=== PATIENT | male | born 1960 | race Hispanic/Latino ===

== ENCOUNTER → 2018-08-07 | Outpatient (CLI) | payer BC | END | disposition home or self-care (01) | LOC: SHCH 15:03 | PROVIDERS: ATTEND Internal Medicine Cardiovascular Disease | DX: I11.9 Hypertensive heart disease without heart failure (principal); I65.23 Occlusion and stenosis of bilateral carotid arteries; I25.10 Atherosclerotic heart disease of native coronary artery without angina pectoris | CPT/HCPCS: 93306; 93880 ==

== ENCOUNTER → 2018-08-08 | Outpatient (CLI) | payer BC ==
[~2018-08-08] MED LIST: REGADENOSON 0.4 MG/5 ML PF SYG IVP SCH
== END | disposition home or self-care (01) ==
LOC: SHCH 08:28
PROVIDERS: ATTEND Internal Medicine Cardiovascular Disease
DX: I25.9 Chronic ischemic heart disease, unspecified (principal); I10 Essential (primary) hypertension
CPT/HCPCS: 78452; 93017; 96374; A9500 ×2; J2785

== ENCOUNTER → 2019-09-11 | Outpatient (CLI) | payer OTHER | END | disposition home or self-care (01) | LOC: SHCH 07:33 | PROVIDERS: ATTEND Internal Medicine Cardiovascular Disease | DX: I10 Essential (primary) hypertension (principal); I25.10 Atherosclerotic heart disease of native coronary artery without angina pectoris | CPT/HCPCS: 78452; 93017; 96374; A9500 ×2; J2785 ==

== ENCOUNTER → 2021-01-25 | Outpatient (CLI) | payer OTHER | END | disposition home or self-care (01) | LOC: SHCH 09:05 | PROVIDERS: ATTEND Internal Medicine Cardiovascular Disease | DX: I25.10 Atherosclerotic heart disease of native coronary artery without angina pectoris (principal); I51.7 Cardiomegaly; I10 Essential (primary) hypertension; E11.9 Type 2 diabetes mellitus without complications | CPT/HCPCS: 93306; 93356; 93880 ==

== ENCOUNTER → 2023-05-25 | Outpatient (CLI) | payer OTHER | END | disposition home or self-care (01) | LOC: SHCH 14:04 | PROVIDERS: ATTEND Internal Medicine Cardiovascular Disease | DX: I65.23 Occlusion and stenosis of bilateral carotid arteries (principal) | CPT/HCPCS: 93880 ==

== ENCOUNTER 2025-04-02 05:47 | Day surgery (SDC) | payer OTHER ==
[2025-03-31 11:54] VITALS: BP 117/71; PULSE 83; RESP 18; TEMP 97.3
[2025-03-31 11:56] LABS: IMMATURE GRANULOCYTE ABSOLUTE 0.06 K/uL (0-1); NUCLEATED RED BLOOD CELLS 0.0 % (0.0-0.19); PLATELET COUNT (AUTO) 191 K/uL (130-400); RED BLOOD CELL COUNT(AUTO) 5.02 MIL/uL (4.50-6.20); RED CELL DISTRIBUTION WIDTH 12.3 % (11.0-15.5); WHITE BLOOD COUNT (AUTO) 8.6 K/uL (4.8-10.8)
[2025-03-31 12:08] LABS: INR 1.02 (0.85-1.15)
[2025-03-31 12:13] LABS: CREATININE 0.7 mg/dL (0.5-1.3); GLOMERULAR FILTR. RATE CALC 102.0 mL/min (>90); GLUCOSE,RANDOM 116.0 mg/dL (70-105); SODIUM SERUM 137.0 mmol/L (136-145); UREA NITROGEN, BLOOD 15.0 mg/dL (7-18)
[2025-03-31 12:22] LABS: APPEARANCE,URINE CLEAR (CLEAR); GLUCOSE, URINE (UA) >=1000 mg/dL (NEGATIVE); LEUKOCYTE ESTERASE ,URINE NEGATIVE Leu/uL (NEGATIVE); NITRATE,URINE NEGATIVE (NEGATIVE); OCCULT BLOOD,URINE NEGATIVE (NEGATIVE)
[2025-03-31 12:28] LABS: ADD UA MICROSCOPIC YES
--- NOTE | 2025-03-31 13:03 | EKG ---
[facility] Test Date: 2025-03-31 Test Time: 11:49:33 Pat Name: FRANCESCA RHODES Department: [facility] Patient ID: [facility] [id number] Room: [facility] Gender: M [employer] Operator: [id number] : 1960 Requested By: Ros KULKARNI Order Number: [id number] Reading MD: Oscar López Measurements Intervals [place] Rate: 79 P: 38 AR: 220 QRS: -54 QRSD: 98 T: 68 QT: 401 QTc: 459 Interpretive Statements Sinus rhythm Prolonged AR interval Inferolateral infarct, old No previous ECG available for comparison Electronically Signed On 04-02-2025 08:47:54 RECONCILIATION MANAGER by Oscar López Please click the below link to view image of tracing.
--- NOTE | 2025-04-01 00:41 | HMCIMG ---
EXAM: CR CHEST, 1 VIEW CLINICAL HISTORY: Preoperative COMPARISON: None provided TECHNIQUE: Single frontal radiograph of the chest was obtained. FINDINGS: Lines/Devices: None. Lungs: Blunted right costophrenic angle, mostly representing pleural thickening. No consolidation or ground-glass opacities are observed. There is no pleural effusion. There is no pneumothorax. Mediastinum and cardiovascular structures: Unfolding of the aorta is noted. The cardiac silhouette is not enlarged. The central airway and mediastinal contours are unremarkable. Bones and soft tissues: Bilateral osteoarthritic changes are seen at the glenohumeral joints as well as the acromioclavicular joints, more evident at the right glenohumeral joint with joint space narrowing and marginal osteophytes. IMPRESSION: 1. No acute cardiopulmonary disease. 2. Bilateral osteoarthritic changes at the glenohumeral joints as well as the acromioclavicular joints, more evident at the right glenohumeral joint. 3. Blunted right costophrenic angle, mostly representing pleural thickening. /[place]
[~2025-04-02] VITALS: Ht 170.2 cm; Wt 89.1 kg
[2025-04-02] VITALS (9 sets, daily range): BP systolic 101–126; BP diastolic 70–80; PULSE 75–86; RESP 11–16; TEMP 97–97.3
[2025-04-02] MEDS: 0.9%NACL 1000ML 1,000 ML IV SCH (06:28)
[2025-04-02] MEDS ORDERED: LIDOCAINE HCL 400MG/20ML VIAL ONE (07:12)
[2025-04-02] MEDS ORDERED: IOHEXOL 350 MG/ML 100ML INFUS..BTL IV ONE (07:12)
[2025-04-02] MEDS ORDERED: HEParin-NS 1,000 UNIT/500 ML 1,000 ML IV ONE (07:13)
[2025-04-02] MEDS ORDERED: NITROGLYCERIN 50MG VIAL ONE (07:13)
[2025-04-02] MEDS ORDERED: MIDAZOLAM HCL 1 MG/ML 2ML VIAL ONE ×2 (07:20→07:50)
[2025-04-02] MEDS ORDERED: SODIUM BICARB 50MEQ 50ML VIAL 50 ML ONE (07:26)
[2025-04-02] MEDS ORDERED: IOHEXOL-350 50ML VIAL IV ONE ×2 (07:53→08:18)
[2025-04-02] MEDS ORDERED: DEXTROSE 50%-WATER 50 ML DISP.SYRIN IV PRN (09:00)
[2025-04-02] MEDS ORDERED: 0.9%NACL 1000ML 1,000 ML IV SCH (09:00)
[2025-04-02] MEDS ORDERED: GLUCAGON 1MG KIT 1 MG ML IM PRN (09:00)
--- NOTE | 2025-04-02 09:21 | CCATH ---
PROCEDURES: * Left heart catheterization. * Left ventriculogram. * Selective right and left coronary arteriogram. * Conscious sedation 60 minutes. INDICATIONS: * Known history of severe coronary artery disease. * Status post remote inferior posterior wall SD with stent placement in 2003. * Status post angioplasty and stenting of the LAD in 2017. * Recurrent angina. * Mild LV dysfunction by echocardiography. * Markedly abnormal Lexiscan Cardiolite, considered a high-risk scan. COMPLICATIONS: None. TOTAL CONTRAST: 85 mL. APPROACH: Right radial approach. DESCRIPTION OF PROCEDURE: The patient was taken to the cardiac catheterization lab after appropriate operative consent was signed. He was prepped and draped in the usual fashion. After conscious sedation was administered, the right radial artery region was infiltrated with 2% Xylocaine without epinephrine. A 6-Togolese radial Slender sheath was advanced in a retrograde fashion with modified Seldinger technique. A TIG-4 catheter was advanced over an indwelling wire. This was engaged in the right coronary artery. The right coronary artery was imaged in multiplane. The right coronary artery was a large vessel that had areas of ectasia. There was diffuse moderate disease in the right coronary artery with focal segmental stenotic lesions of 40% in the proximal segment, 70% in the mid segment, and 80% in the distal segment. The RCA bifurcated into a PDA and a PLVB. The PLVB was small. The PDA was a moderately sized vessel that had an 80% ostial lesion. An FL3.5 catheter was then advanced and engaged in the ostium of the left main. This was imaged in multiplane identifying a normal left main that bifurcated into LAD and circumflex. The circumflex was a large vessel that had a stent in its proximal portion that was patent. It gave rise to a tiny OM1, which was jailed by the stent. The ongoing circ gave rise to a large OM2, which was a branching vessel that had an 80% proximal to ostial lesion. Downgoing circ was small. The LAD was a moderately large vessel in its proximal portion and gave rise to a large first diagonal. Just distal to the first diagonal, there was a chronic stent that had been deployed in the past. The stent had 95% in-stent restenosis as well as candy wrapper at distal edge critical stenotic lesions at 95%. There was a second moderate lesion distal to the second diagonal at 60%. The LAD exhibited MARIE 1 flow. A pigtail catheter was placed in the left ventricular cavity. Left ventricular end-diastolic pressure measurement was obtained. Ventriculography was performed in the CORTES projection identifying minimal inferior apical hypokinesis with an EF in the 50% range. Pullback revealed a minor gradient across the aortic valve of approximately 10 mmHg. At this point, other Cardiology opinions were obtained and the decision was made to proceed with a surgical opinion. The catheter was withdrawn over an indwelling wire. A radial band was applied with good hemostasis. The patient tolerated the procedure well. Left the cardiac catheterization lab in stable condition. FINAL IMPRESSION: * Severe three-vessel coronary artery disease with critical in-stent restenosis in the left anterior descending artery. * Borderline left ventricular function. * No mitral regurgitation. * Minimal aortic stenosis with a 10 mm gradient. * Recurrent angina. * Markedly abnormal, high-risk Cardiolite scan. PLAN: Consultation with Cardiothoracic Surgery. TID: [id number] RECEIPT: [id number]
--- NOTE | 2025-04-02 09:28 | NUR ---
Dr Savage to speak with Patient and Family at length. All questions answered. Sent all pertinent information to [facility]ARCON. Pending return call. Notified CN AGNES Luna. Right Radial vasc band clean and dry. Will remove per protocol. Patient denies pain or issue. Daughter at bedside appearing supportive.
--- NOTE | 2025-04-02 10:07 | NUR ---
Faxed requested documents to [facility] RNJulia.
--- NOTE | 2025-04-02 10:46 | NUR ---
Vasc band removed per protocol. No evidence of bleeding, bruising or hematoma. Radial pulses intact. Patient restful. Ate 100% of Breakfast and tolerating fluids. NS as ordered to patent PIV left FA. Reported off in full to AGNES Mendez
== END 2025-04-02 12:33 | disposition home or self-care (01) ==
LOC: DAH 05:47
PROVIDERS: ATTEND Internal Medicine Cardiovascular Disease
DX: I25.118 Atherosclerotic heart disease of native coronary artery with other forms of angina pectoris (principal); T82.855A Stenosis of coronary artery stent, initial encounter; I25.2 Old myocardial infarction; R94.39 Abnormal result of other cardiovascular function study; I44.0 Atrioventricular block, first degree; I10 Essential (primary) hypertension; E78.5 Hyperlipidemia, unspecified; E66.9 Obesity, unspecified; E11.9 Type 2 diabetes mellitus without complications; M19.90 Unspecified osteoarthritis, unspecified site; I35.0 Nonrheumatic aortic (valve) stenosis; Z95.5 Presence of coronary angioplasty implant and graft; Z90.89 Acquired absence of other organs; Z79.01 Long term (current) use of anticoagulants; Z68.33 Body mass index [BMI] 33.0-33.9, adult; Z79.4 Long term (current) use of insulin; Z79.899 Other long term (current) drug therapy; Z79.82 Long term (current) use of aspirin; Y71.2 Prosthetic and other implants, materials and accessory cardiovascular devices associated with adverse incidents
CPT/HCPCS: 80048; 83880; 85025; 85610; 85730; 81001; 36415; 71045; 93005; 93458; 99156; 99157 ×2; 82948 ×2; C1769; A4649; C1894; Q9965; J3010; J3490 ×4; J1644 ×2; J2250 ×2; Q9967 ×3; A4215; A4222; A6260; A4221; A4663; A4216; A6258; A4606; A4223 ×3; 96360; 96361